=== PATIENT | female | born 1985 | race Caucasian/White ===

== ENCOUNTER 2018-07-12 21:36 | Emergency (ER) | payer BC ==
[2018-07-12] MEDS ORDERED: Bacitracin Oint 1 GM U/D Packet TOP ONE (21:54)
[2018-07-12] MEDS ORDERED: Lidocaine 1% with EPINEPHrine 1:100,000 20 ML MDV INJECT ONE (21:54)
--- NOTE | 2018-07-12 21:58 | EDM.PDOC ---
ED HPI GENERAL MEDICAL PROBLEM - General Chief Complaint: Laceration Stated Complaint: CUT TO RIGHT HAND Time Seen by Provider: 07/12/18 21:50 - History of Present Illness INITIAL COMMENTS - FREE TEXT/NARRATIVE: HISTORY AND PHYSICAL: History of present illness: The patient is a 32-year-old healthy female who presents with a laceration to the thenar eminence of her right hand that occurred with a slicer while at home and she was working in the kitchen. She is up-to-date on her tetanus shot and is right-hand dominant. She says she can move all her fingers but she's feeling very anxious and panicky due to the bleeding. She was in her usual state of good health prior to this event Review of systems: As per history of present illness and below otherwise all systems reviewed and negative. Past medical history: As per history of present illness and as reviewed below otherwise noncontributory. Surgical history: As per history of present illness and as reviewed below otherwise noncontributory. Social history: No reported history of drug or alcohol abuse. Family history: As per history of present illness and as reviewed below otherwise noncontributory. Physical exam: HEENT: Atraumatic, normocephalic, , negative for conjunctival pallor or scleral icterus, mucous membranes moist, throat clear, neck supple, nontender, trachea midline. Lungs: Clear to auscultation, breath sounds equal bilaterally, chest nontender. Heart: S1S2, regular rhythm no overt murmurs Abdomen: Soft, nondistended, nontender. NABS Pelvis: Deferred Genitourinary: Deferred. Rectal: Deferred. Extremities: Atraumatic, with full range of motion of all extremities with the exception of the palmar surface of the right hand. At the thenar eminence extending horizontally there is a 4 cm laceration which goes to the deep subcutaneous tissue that the patient can oppose flex and extend at the thumb as well as all digits. Neurovascular is intact. Neurovascular unremarkable. Neuro: Awake, alert, oriented. Cranial nerves II through XII unremarkable. Cerebellum unremarkable. Motor and sensory unremarkable throughout. Exam nonfocal. Diagnostics: [] Therapeutics: Cleansing by nursing local wound care bacitracin and dressing lidocaine with epinephrine for procedure Keflex Please note that prior to me numbing the area we're talking about the procedure the patient was hyperventilating and very anxious and started to have some carpal spasm. We had her breathe into a paper bag and moved her bed and she calmed down appropriately. Procedure note: After lidocaine with epinephrine was infused in a local fashion , the wound was cleansed by nursing. The area was prepped and draped in sterile fashion and the wound was explored and no foreign bodies were appreciated. The skin edges were reapproximated with a total number of #7 sutures of 4-0 nylon in simple interrupted fashion. There were no complications and bacitracin and dressing were applied. The patient tolerated the procedure well. Impression: Laceration to right palm of hand Definitive disposition and diagnosis as appropriate pending reevaluation and review of above. right palm Pain Score (Numeric/FACES): 8 - Related Data Allergies Allergy/AdvReac Type Severity Reaction Status Date / Time ciprofloxacin [From Cipro] Allergy Anaphylactic Verified 07/12/18 21:40 Shock ciprofloxacin HCl Allergy Anaphylactic Verified 07/12/18 21:40 [From Cipro] Shock Sulfa (Sulfonamide Allergy Anaphylactic Verified 07/12/18 21:40 Antibiotics) Shock Home Meds: Home Meds Memantine [Namenda] 10 mg PO DAILY 07/12/18 [History] PARoxetine HCl [Paroxetine HCl] 40 mg PO DAILY 07/12/18 [History] Past Medical History HEENT History: Reports: None Cardiovascular History: Reports: None Respiratory History: Reports: None Gastrointestinal History: Reports: None Genitourinary History: Reports: None DEHORNER History: Reports: Musculoskeletal History: Reports: None Neurological History: Reports: None Psychiatric History: Reports: Anxiety, Depression, OCD Endocrine/Metabolic History: Reports: None Hematologic History: Reports: None Immunologic History: Reports: None Oncologic (Cancer) History: Reports: None Dermatologic History: Reports: None - Infectious Disease History Infectious Disease History: Reports: None - Past Surgical History Head Surgeries/Procedures: Reports: None HEENT Surgical History: Reports: Tonsillectomy Other GI Surgeries/Procedures: N/V Musculoskeletal Surgical History: Reports: Other (See Below) Social & Family History - Family History Family Medical History: Noncontributory - Tobacco Use Smoking Status *Q: Never Smoker - Caffeine Use Caffeine Use: Reports: None - Recreational Drug Use Recreational Drug Use: No ED ROS GENERAL - Review of Systems Review Of Systems: ROS reveals no pertinent complaints other than HPI. ED EXAM, SKIN/RASH Exam: See Below (See dictation) Course - Vital Signs Last Recorded V/S: Last Vital Signs Temp 36.5 C 07/12/18 21:40 Pulse 120 H 07/12/18 21:40 Resp 19 07/12/18 21:40 BP 171/108 H 07/12/18 21:40 Pulse Ox 98 07/12/18 21:40 - Orders/Labs/Meds Meds: Medications Discontinued Medications Generic Name Dose Route Start Last Admin Trade Name Sadaf PRN Reason Stop Dose Admin Bacitracin 1 dose 07/12/18 21:54 07/12/18 22:47 Bacitracin Oint 1 Gm TOP 07/12/18 21:55 1 dose ONETIME ONE Administration Lidocaine/Epinephrine 20 ml 07/12/18 21:54 07/12/18 22:47 Xylocaine 1% With Epinephrine 1:100,000 INJECT 07/12/18 21:55 20 ml ONETIME ONE Administration Departure - Departure Time of Disposition: 23:14 Disposition: Home, Self-Care 01 Condition: Good Clinical Impression: Laceration of hand Qualifiers: Encounter type: initial encounter Foreign body presence: without foreign body Laterality: right Qualified Code(s): S61.411A - Laceration without foreign body of right hand, initial encounter - Discharge Information Forms: ED Department Discharge Additional Instructions: The following information is given to patients seen in the emergency department who are being discharged to home. This information is to outline your options for follow-up care. We provide all patients seen in our emergency department with a follow-up referral. The need for follow-up, as well as the timing and circumstances, are variable depending upon the specifics of your emergency department visit. If you don't have a primary care physician on staff, we will provide you with a referral. We always advise you to contact your personal physician following an emergency department visit to inform them of the circumstance of the visit and for follow-up with them and/or the need for any referrals to a consulting specialist. The emergency department will also refer you to a specialist when appropriate. This referral assures that you have the opportunity for followup care with a specialist. All of these measure are taken in an effort to provide you with optimal care, which includes your followup. Under all circumstances we always encourage you to contact your private physician who remains a resource for coordinating your care. When calling for followup care, please make the office aware that this follow-up is from your recent emergency room visit. If for any reason you are refused follow-up, please contact the [facility] emergency department at and ask to speak to the emergency department charge nurse. [facility] Specialty clinic-Plastic Surgery and Hand Surgery Professional Building [address] [place] [id number] Keep dressing was placed on in the ED in place for the next 24 hours and then remove and cleanse with mild soap and water pat dry and apply bacitracin or Neosporin area please fill the prescription for Keflex and take as a prophylaxis as this wound was deep and in the hand. He may return to ER in 7-10 days for suture removal or with our hand surgeon using resources given to above. Do not use Band-Aids and try to keep the wound open to air as much as possible. Use [id number] pain medications as you choose. Return to ER sooner as needed and as discussed
[2018-07-12] MEDS ORDERED: Cephalexin 500 MG Cap PO ONE (23:16)
[2018-07-13 05:16] VITALS: BP 116/83
== END 2018-07-12 23:50 | disposition home or self-care (01) ==
LOC: MW.ED 21:36
DX: S61.411A Laceration without foreign body of right hand, initial encounter (principal); Z88.1 Allergy status to other antibiotic agents; Z88.2 Allergy status to sulfonamides; W26.8XXA Contact with other sharp object(s), not elsewhere classified, initial encounter
CPT/HCPCS: 12002; 99283; A9270

== ENCOUNTER 2018-07-22 22:05 | Emergency (ER) | payer BC ==
[2018-07-22 22:37] VITALS: BP 108/76
== END 2018-07-22 22:35 | disposition left against medical advice (07) ==
LOC: MW.ED 22:05
DX: Z53.21 Procedure and treatment not carried out due to patient leaving prior to being seen by health care provider (principal)
CPT/HCPCS: 99281